=== PATIENT | male | born 1955 | race Caucasian/White ===

== ENCOUNTER 2021-12-20 10:09 | Emergency (ER) | payer OTHER, MEDICAID ==
[~2021-12-20] VITALS: Ht 175.3 cm; Wt 88.5 kg
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
[2021-12-20 10:28] VITALS: BP_SYST 156
--- NOTE | 2021-12-20 10:45 | NUR ---
MD ODEN AT BEDSIDE FOR MSE
[2021-12-20] MEDS ORDERED: LIDOCAINE/EPI 1% 1:100000 20 ML VIAL ONE (10:54)
[2021-12-20] MEDS ORDERED: LIDOCAINE/EPI 1% 1:100000 20 ML VIAL INJ ONE (11:00)
--- NOTE | 2021-12-20 13:04 | NUR ---
Patient given written and verbal discharge instructions and verbalizes understanding. ER MD discussed with patient the results and treatment provided. Patient in stable condition. ID arm band removed. Opportunity for questions provided and answered. Medication side effect fact sheet provided.
[2021-12-20 13:16] VITALS: BP_SYST 156
== END 2021-12-20 13:04 | disposition home or self-care (01) ==
LOC: SED 10:09
DX: L02.212 Cutaneous abscess of back [any part, except buttock and flank] (principal); R22.2 Localized swelling, mass and lump, trunk; Z88.3 Allergy status to other anti-infective agents; Z79.899 Other long term (current) drug therapy
CPT/HCPCS: 99282